=== PATIENT | female | born 1935 | race Caucasian/White ===

== ENCOUNTER 2016-11-02 15:24 | Emergency (ER) | payer MEDICARE ==
[2016-11-02] MEDS ORDERED: Albuterol/Ipratropium NEB.SOL* Albuterol 2.5 MG/Ipratropium 0.5 MG 3 ML INH ONE (17:46)
[2016-11-02] MEDS ORDERED: methylPREDNISolone SOD SUCC* 125 MG 2 ML VIAL IV ONE (17:46)
[2016-11-02 18:10] LABS: Hematocrit 38 % (35-47); Hemoglobin 12.1 g/dl (12.0-16.0); Mean Corpuscular HGB Conc 32 g/dl (31-36); Mean Corpuscular Hemoglobin 28 pg (27-31); Mean Corpuscular Volume 87 fL (80-97); Mean Platelet Volume 9 um3 (7.4-10.4); Red Cell Distribution Width 14 % (10.5-15); White Blood Count 7.5 10^3/ul (3.5-10.8)
--- NOTE | 2016-11-02 18:24 | RAD ---
Indication: Cough. Single frontal view of the chest performed at 1720 hours was reviewed. Comparison is made with previous exam dated June 13, 2016. Pacemaker leads are in place. Heart is at the upper limits of normal in size. Lung marquez are clear. No changes are noted since previous exam. IMPRESSION: NO ACTIVE CARDIOPULMONARY DISEASE IS NOTED.
[2016-11-02 18:27] LABS: Albumin 4.4 g/dL (3.2-5.2); BUN/Creatinine Ratio 23.2 (8-20); Calcium 9.6 mg/dL (8.6-10.3); EGFR African American 69.6 (>60); EGFR Non-African American 54.1 (>60); Globulin 3.7 g/dL (2-4); Total Bilirubin 0.5 mg/dL (0.2-1.0); Total Protein 8.1 g/dL (6.4-8.9)
[2016-11-02 18:30] LABS: Potassium 4.5 mmol/L (3.5-5.0)
[2016-11-02] MEDS ORDERED: guaiFENesin/CODIEN 100MG-10MG* 5 ML UDC PO ONE (18:37)
[2016-11-02 20:08] VITALS: BP 137/77
--- NOTE | 2016-11-04 08:36 | ED ---
I, Gopi,Renetta, scribed for Micha Moyer MD on 11/02/16 at 1747 . Respiratory - HPI Summary HPI Summary: This 81 y/o female presents to ED for persistent productive cough and chest congestion since 2 weeks ago. She also reports upper back pain, sore throat, and mild dysnpea. Negative rhinorrhea, fever, or hemoptysis. Remote former smoker with last smoking hx 40 years ago. She has been taking NyQuil nightly to control her symptoms while sleeping. Primary care involves Dr. Oliveira. Plan of care involving bloodwork and CXR to r/o PNA or bronchitis is discussed with pt, and she is agreeable. - History of Current Complaint Chief Complaint: EDUpperRespComplaint Stated Complaint: UPPER RESPIRATORY COMPLAINT/PAIN IN BACK/SOB Time Seen by Provider: 11/02/16 17:22 Hx Obtained From: Patient, Medical Records Onset/Duration: Gradual Onset, Still Present Pain Intensity: 5 Character: Cough (Productive) Sputum Color: Clear Aggravating Factor(s): Nothing Alleviating Factor(s): Nothing Associated Signs and Symptoms: Pleuritic Chest Pain - pain at upper back - Allergy/Home Medications Allergies/Adverse Reactions: Allergies Allergy/AdvReac Type Severity Reaction Status Date / Time Ezetimibe [From Zetia] Allergy Severe Muscle Verified 11/02/16 15:30 weakness Penicillin V Allergy Severe Hives Verified 11/02/16 15:30 [From Penicillin VK Potassium] Shellfish Allergy Allergy Severe Swelling Verified 11/02/16 15:30 Of Face,Lips,& Throat Cephalexin [From Keflex] Allergy Intermediate Hives Verified 11/02/16 15:30 Diltiazem Allergy Intermediate Rash Verified 11/02/16 15:30 Colesevelam [From Welchol] Allergy Unknown Hives Verified 11/02/16 15:30 Codeine AdvReac Severe See Comment Verified 11/02/16 15:30 Statins AdvReac Severe Muscle Ache Verified 11/02/16 15:30 Metoprolol [From Toprol XL] AdvReac Intermediate Dizziness Verified 11/02/16 15: 30 PMH/Surg Hx/FS Hx/Imm Hx Endocrine/Hematology History: Reports: Hx Thyroid Disease - HYPO Denies: Hx Diabetes Cardiovascular History: Reports: Hx Hypercholesterolemia, Hx Hypertension - ON MEDS, Hx Pacemaker/ICD, Hx Rheumatic Fever - A CHILD, Other Cardiovascular Problems/Disorders - HX PAROXYSMAL AFIB, 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 Denies: Hx Angina, Hx Coronary Artery Disease, Hx Myocardial Infarction, Hx Valvular Heart Disease Respiratory History: Reports: Hx Sleep Apnea Denies: Hx Asthma, Hx Chronic Obstructive Pulmonary Disease (COPD) GI History: Reports: Hx Gastroesophageal Reflux Disease - ON MEDS, Hx Hiatal Hernia - HX OF, Hx Irritable Bowel Denies: Hx Ulcer History: Denies: Hx Renal Disease Musculoskeletal History: Reports: Hx Arthritis - BACK AND NECK, KNEES, Hx Bursitis - RIGHT KNEE, Other Musculoskeletal History - SPINAL STENOSIS Sensory History: Denies: Hx Contacts or Glasses, Hx Hearing Aid Opthamlomology History: Denies: Hx Contacts or Glasses Psychiatric History: Reports: Hx Anxiety, Hx Depression, Hx Panic Disorder - Cancer History Hx Chemotherapy: No Hx Radiation Therapy: No - Surgical History Surgery Procedure, Year, and Place: Hysterectomy - 1978. Bladder suspension 2001 [facility]. Left knee TKR 2008 [facility]. left shoulder repair 2012. bilat cataract. right ear surgery 1976 Hx Anesthesia Reactions: Yes - hypotension per pt - Immunization History Date of Tetanus Vaccine: up to date Date of Influenza Vaccine: up to date Infectious Disease History: No Infectious Disease History: Reports: Hx Shingles - 2000 Denies: Hx Clostridium Difficile, Hx Hepatitis, Hx Human Immunodeficiency Virus (HIV), Hx of Known/Suspected MRSA, Hx Tuberculosis, Hx Known/Suspected VRE , Hx Known/Suspected VRSA, History Other Infectious Disease, Traveled Outside the [place] in Last 30 Days - Family History Known Family History: Positive: Cardiac Disease - Brother -- CAD - Social History Alcohol Use: Rare Alcohol Amount: 2 times/month Hx Substance Use: No Substance Use Type: Reports: None Hx Tobacco Use: Yes Smoking Status (MU): Former Smoker Type: Cigarettes Have You Smoked in the Last Year: No Review of Systems Negative: Fever, Chills Positive: Shortness Of Breath - mild, Cough, Other - chest congestion Negative: Vomiting, Nausea Negative: dysuria, hematuria Positive: Other - pain at left upper back secondary to coughing. Negative: Myalgia Negative: Rash Neurological: Other - negative dizziness Negative: Anxious, Depressed All Other Systems Reviewed And Are Negative: Yes Physical Exam - Summary Physical Exam Summary: Constitutional: Well-developed, Well-nourished, Alert. (-) Distressed Skin: Warm, Dry HENT: Normocephalic; Atraumatic Eyes: Conjunctiva normal Neck: Musculoskeletal ROM normal neck. (-) JVD, (-) Stridor, (-) Tracheal deviation Cardio: Rhythm regular, rate normal, Heart sounds normal; Intact distal pulses; The pedal pulses are 2+ and symmetric. Radial pulses are 2+ and symmetric. (-) Murmur Pulmonary/Chest wall: Effort normal. (+) Active cough, (-) Wheezes, (+) Left lower crackle, mild Abd: Soft, (-) Tenderness, (-) Distension, (-) Guarding, (-) Rebound Musculoskeletal: (-) Edema Lymph: (-) Cervical adenopathy Neuro: Alert, Oriented x3 Psych: Mood and affect Normal Triage Information Reviewed: Yes Vital Signs On Initial Exam: Initial Vitals Temp Pulse Resp BP Pulse Ox 98.9 F 62 20 189/74 100 11/02/16 15:30 11/02/16 15:30 11/02/16 15:30 11/02/16 15:30 11/02/16 15:30 Vital Signs Reviewed: Yes - Rosangela Coma Scale Coma Scale Total: 15 Diagnostics - Vital Signs Vital Signs Temp Pulse Resp BP Pulse Ox 11/02/16 17:00 68 156/134 95 11/02/16 16:38 61 100 11/02/16 16:36 165/76 11/02/16 15:32 98.9 F 63 20 189/74 100 11/02/16 15:30 98.9 F 62 20 189/74 100 - Laboratory Result Diagrams: 11/02/16 18:00 11/02/16 18:00 Lab Statement: Any lab studies that have been ordered have been reviewed, and results considered in the medical decision making process. - Radiology CXR Xray Interpretation: No Acute Changes Radiology Interpretation Completed By: Radiologist Re-Evaluation - Re-Evaluation First Eval Re-Evaluation Time: 19:22 Comment: MD updated pt on bloodwork and CXR results. Second Eval Re-Evaluation Time: 19:55 Change: Improved Comment: MD in room to re-evaluate pt and to discuss plan of care. Pt was able to ambulate around ED. Feeling much better, and wishes to go home. Disposition - Course Assessment/Plan: This 81 y/o female presents to ED for persistent productive cough with mild production of clear sputum and chest congestion. Upon examination pt is noted with mild left lower crackle. CXR is indicated negative. Pt feels better after methylprednisolone and inh treatment. Pt was able to ambulate around ED by herself, and wishes to go home. - Diagnoses Provider Diagnoses: Bronchitis Discharge - Discharge Plan Condition: Stable Disposition: HOME Prescriptions: Albuterol HFA INHALER* [Ventolin HFA Inhaler*] 1 - 2 puff INH Q4H PRN #1 mdi PRN Reason: Cough Benzonatate CAP* [Tessalon 100 MG CAP*] 100 mg PO TID #21 cap DOXYcycline CAP(*) [DOXYcycline 100MG CAP(*)] 100 mg PO BID #14 cap predniSONE TAB* [Deltasone TAB*] 60 mg PO DAILY #5 tab Patient Education Materials: Benzonatate (By mouth), Doxycycline (By mouth), Albuterol (By breathing), Prednisone (By mouth), Acute Bronchitis (ED) Referrals: Candelario Olievira MD [Primary Care Provider] - 2 Days The documentation as recorded by the Gopi malave Soohyun accurately reflects the service I personally performed and the decisions made by , Micha Moyer MD.
== END 2016-11-02 20:06 | disposition home or self-care (01) ==
LOC: ED 15:24
DX: J40 Bronchitis, not specified as acute or chronic (principal); R07.9 Chest pain, unspecified; M54.9 Dorsalgia, unspecified; R05 Cough; R06.02 Shortness of breath; Z87.891 Personal history of nicotine dependence
CPT/HCPCS: 36415; 71010; 80053; 83605; 85025; 87040; 87502; 96374; 99282; A9270-GY; J2930

== ENCOUNTER 2017-07-22 10:16 | Emergency (ER) | payer MEDICARE ==
[2017-07-22] MEDS ORDERED: methylPREDNISolone SOD 40 MG* 1 ML VIAL IV ONE (10:49)
[2017-07-22] MEDS ORDERED: diPHENhydraMINE IV* 50 MG/ML 1 ml VIAL (BENADRYL) IV ONE (10:49)
[2017-07-22] MEDS ORDERED: Metoprolol Tartrate IV* 1 MG/ML 5 ML VIAL IV ONE (10:49)
[2017-07-22] MEDS ORDERED: Metoprolol Tartrate TAB* 50 mg PO ONE (10:50)
[2017-07-22 11:26] LABS: ABS Basophils 0 10^3/ul (0-0.2); ABS Eosinophils 0.1 10^3/ul (0-0.6); ABS Lymphocytes 1.6 10^3/ul (1.0-4.8); ABS Monocytes 0.5 10^3/ul (0-0.8); ABS Neutrophils 4.7 10^3/ul (1.5-7.7); ABS Nucleated RBC 0 10^3/ul; Eosinophil % 1.8 % (0-6); Hematocrit 35 % (35-47); Hemoglobin 11.4 g/dl (12.0-16.0); Lymphocyte % 22.9 % (25-47); Mean Corpuscular HGB Conc 32 g/dl (31-36); Mean Corpuscular Hemoglobin 29 pg (27-31); Mean Corpuscular Volume 88 fL (80-97); Mean Platelet Volume 10 um3 (7.4-10.4); Nucleated Red Blood Cells % 0; Platelet Count 263 10^3/ul (150-450); Red Blood Count 4.01 10^6/ul (4.0-5.4); Red Cell Distribution Width 14 % (10.5-15)
[2017-07-22 11:30] LABS: INR 1.12 (0.77-1.02)
--- NOTE | 2017-07-22 11:49 | RAD ---
Indication: Rapid atrial fibrillation. History of tobacco use. Comparison: November 02, 2016 Technique: Upright AP 1134 hours Report: Rarefaction of upper lung zone interstitial markings. No focal pulmonary lesion, compelling alveolar consolidation, pleural effusion, pneumothorax. Cardiomegaly. RIGHT atrial and RIGHT ventricular level pacemaker leads without change. Unremarkable central pulmonary vasculature. Moderately large retrocardiac hiatal hernia without significant change. Negative for free air beneath the diaphragm. LEFT glenohumeral prosthesis noted. IMPRESSION: 1. Stigmata of obstructive lung disease. 2. Cardiomegaly 3. Moderately large retrocardiac hiatal hernia without significant interval change. 4. No acute pulmonary or cardiac process evident.
[2017-07-22] MEDS ORDERED: Diltiazem TAB* 30 MG PO ONE (12:12)
[2017-07-22] MEDS ORDERED: Diltiazem IV* 5 MG/ML 5 ML VIAL (for loading dose/IV Push) (25 MG) IV SLOW PU ONE (12:13)
[2017-07-22] MEDS ORDERED: Diltiazem CD CAP* 120 MG PO ONE (15:56)
--- NOTE | 2017-07-22 16:19 | ED ---
Edison Barahona Angela, scribed for Dillon Pederson MD on 07/22/17 at 1037 . Palpitations / Dysrhythmia - HPI Summary HPI Summary: This pt is a 82 y/o female, accompanied by her son, presenting to [facility] c/o atrial fibrillation since 02:30 yesterday. Pt notes she has not had afib attacks since she has her pacemaker placed. Pt notes "I tried getting rid of it " and usually takes her medications. She states she does feel coming out off afib completely. Pt currently c/o fatigue and mild SOB. She denies pleuritic chest pain. Denies chest pain, LE pain, LE swelling, dysuria. Pt denies being sick lately. Pt is on Eliquis (since pacemaker was placed) and Sotalol. She reports the last time she had afib she had cardioversion and after this she had a pacemaker placed. After placement of pacemaker, pt has not undergone cardioversion. Allergies include diltiazem (reaction was rash) and metoprolol (reaction was dizziness). - History of Current Complaint Chief Complaint: EDDysrhythmPalp Hx Obtained From: Patient, Family/Mill Mach[employer] - son Onset/Duration: Lasting Days - 1, Still Present Timing: Constant Severity Currently: Moderate Character: Irregular - Afib Aggravating: Nothing Alleviating: Nothing Associated Signs & Symptoms: Shortness of Breath - Allergy/Home Medications Allergies/Adverse Reactions: Allergies Allergy/AdvReac Type Severity Reaction Status Date / Time Ezetimibe [From Zetia] Allergy Severe Muscle Verified 07/22/17 10:24 weakness Penicillin V Allergy Severe Hives Verified 07/22/17 10:24 [From Penicillin VK Potassium] Shellfish Allergy Allergy Severe Swelling Verified 07/22/17 10:24 Of Face,Lips,& Throat Cephalexin [From Keflex] Allergy Intermediate Hives Verified 07/22/17 10:24 Diltiazem Allergy Intermediate Rash Verified 07/22/17 10:24 Colesevelam [From Welchol] Allergy Unknown Hives Verified 07/22/17 10:24 Codeine AdvReac Severe See Comment Verified 07/22/17 10:24 Statins AdvReac Severe Muscle Ache Verified 07/22/17 10:24 Metoprolol [From Toprol XL] AdvReac Intermediate Dizziness Verified 07/22/17 10: 24 Home Medications: Home Medications Calcium Carbonate-Cholecalcife [Calcium 1000 + D] 2 tab PO DAILY 07/22/17 [ History Confirmed 07/22/17] Cholecalciferol TAB* [Vitamin D TAB*] 2,000 units PO DAILY 07/22/17 [History Confirmed 07/22/17] Lactobacillus [Probiotic] 1 cap PO DAILY 07/22/17 [History Confirmed 07/22/17] Thiamine TAB* [Vitamin B-1 TAB*] 100 mg PO DAILY 07/22/17 [History Confirmed 04/29] Zolpidem TAB* [Ambien TAB*] 10 mg PO BEDTIME PRN 07/22/17 [History Confirmed 04/29] PMH/Surg Hx/FS Hx/Imm Hx Endocrine/Hematology History: Reports: Hx Thyroid Disease - HYPO Denies: Hx Diabetes Cardiovascular History: Reports: Hx Atrial Fibrillation, Hx Hypercholesterolemia , Hx Hypertension - ON MEDS, Hx Pacemaker/ICD, Hx Rheumatic Fever - A CHILD, Other Cardiovascular Problems/Disorders - HX PAROXYSMAL AFIB, 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 Denies: Hx Angina, Hx Coronary Artery Disease, Hx Myocardial Infarction, Hx Valvular Heart Disease Respiratory History: Reports: Hx Sleep Apnea Denies: Hx Asthma, Hx Chronic Obstructive Pulmonary Disease (COPD) GI History: Reports: Hx Gastroesophageal Reflux Disease - ON MEDS, Hx Hiatal Hernia - HX OF, Hx Irritable Bowel Denies: Hx Ulcer History: Denies: Hx Renal Disease Musculoskeletal History: Reports: Hx Arthritis - BACK AND NECK, KNEES, Hx Bursitis - RIGHT KNEE, Other Musculoskeletal History - SPINAL STENOSIS Sensory History: Denies: Hx Contacts or Glasses, Hx Hearing Aid Opthamlomology History: Denies: Hx Contacts or Glasses Psychiatric History: Reports: Hx Anxiety, Hx Depression, Hx Panic Disorder - Cancer History Hx Chemotherapy: No Hx Radiation Therapy: No - Surgical History Surgery Procedure, Year, and Place: Hysterectomy - 1978. Bladder suspension 2001 [facility]. Left knee TKR 2008 [facility]. left shoulder repair 2012. bilat cataract. right ear surgery 1976 Hx Anesthesia Reactions: Yes - hypotension per pt - Immunization History Date of Tetanus Vaccine: up to date Date of Influenza Vaccine: up to date Infectious Disease History: Unable to Obtain/Confirm Infectious Disease History: Reports: Hx Shingles - 2000 Denies: Hx Clostridium Difficile, Hx Hepatitis, Hx Human Immunodeficiency Virus (HIV), Hx of Known/Suspected MRSA, Hx Tuberculosis, Hx Known/Suspected VRE , Hx Known/Suspected VRSA, History Other Infectious Disease, Traveled Outside the [place] in Last 30 Days - Family History Known Family History: Positive: Cardiac Disease - Brother -- CAD - Social History Alcohol Use: Rare Alcohol Amount: 2 times/month Hx Substance Use: No Substance Use Type: Reports: None Hx Tobacco Use: Yes Smoking Status (MU): Former Smoker Type: Cigarettes Have You Smoked in the Last Year: No Review of Systems Positive: Fatigue. Negative: Fever, Chills Positive: Palpitations. Negative: Chest Pain Positive: Shortness Of Breath Negative: dysuria Negative: Edema - LE, Other - LE pain All Other Systems Reviewed And Are Negative: Yes Physical Exam - Summary Physical Exam Summary: Appearance: Well-appearing, Well-nourished. No acute distress. Skin: Warm Eyes: Normal ENT: Normal Neck: Supple, nontender Respiratory: Clear to auscultation Cardiovascular: Irregularly irregular consistent with atrial fibrillation. Equal bilateral pulses. Abdomen: Soft, nontender Bowel: Present Musculoskeletal: Normal, Strength/ROM Intact Neurological: Normal, A&Ox3. Normal mentation. Following commands. Psychiatric: Normal Triage Information Reviewed: Yes Vital Signs On Initial Exam: Initial Vitals Temp Pulse Resp BP Pulse Ox 98.6 F 104 20 137/79 97 07/22/17 10:19 07/22/17 10:19 07/22/17 10:19 07/22/17 10:19 07/22/17 10:19 Vital Signs Reviewed: Yes Diagnostics - Vital Signs Vital Signs Temp Pulse Resp BP Pulse Ox 07/22/17 10:19 98.6 F 104 20 137/79 97 - Laboratory Lab Results: Lab Results 07/22/17 07/22/17 07/22/17 Range/Units 11:07 11:07 11:07 WBC 7.0 (3.5-10.8) 10^3/ul RBC 4.01 (4.0-5.4) 10^6/ul Hgb 11.4 L (12.0-16.0) g/dl Hct 35 (35-47) % MCV 88 (80-97) fL MCH 29 (27-31) pg MCHC 32 (31-36) g/dl RDW 14 (10.5-15) % Plt Count 263 (150-450) 10^3/ul MPV 10 (7.4-10.4) um3 Neut % (Auto) 67.2 (38-83) % Lymph % (Auto) 22.9 L (25-47) % [place] % (Auto) 7.5 (1-9) % Eos % (Auto) 1.8 (0-6) % Baso % (Auto) 0.6 (0-2) % Absolute Neuts (auto) 4.7 (1.5-7.7) 10^3/ul Absolute Lymphs (auto) 1.6 (1.0-4.8) 10^3/ul Absolute Monos (auto) 0.5 (0-0.8) 10^3/ul Absolute Eos (auto) 0.1 (0-0.6) 10^3/ul Absolute Basos (auto) 0 (0-0.2) 10^3/ul Absolute Nucleated RBC 0 10^3/ul Nucleated RBC % 0 INR (Anticoag Therapy) 1.12 H (0.77-1.02) APTT 35.9 (26.0-36.3) seconds Sodium 140 (133-145) mmol/L Potassium 4.2 (3.5-5.0) mmol/L Chloride 104 (101-111) mmol/L Carbon Dioxide 27 (22-32) mmol/L Anion Gap 9 (2-11) mmol/L BUN 36 H (6-24) mg/dL Creatinine 0.99 H (0.51-0.95) mg/dL Est GFR ( Amer) 69.4 (>60) Est GFR (Non-Af Amer) 54.0 (>60) BUN/Creatinine Ratio 36.4 H (8-20) Glucose 165 H (70-100) mg/dL Calcium 9.4 (8.6-10.3) mg/dL Magnesium 2.1 (1.9-2.7) mg/dL Total Bilirubin 0.30 (0.2-1.0) mg/dL AST 11 L (13-39) U/L ALT 7 (7-52) U/L Alkaline Phosphatase 48 (34-104) U/L Troponin I 0.03 (<0.04) ng/mL Total Protein 7.0 (6.4-8.9) g/dL Albumin 3.8 (3.2-5.2) g/dL Globulin 3.2 (2-4) g/dL Albumin/Globulin Ratio 1.2 (1-3) TSH 0.15 L (0.34-5.60) mcIU/mL Blood Type Antibody Screen 07/22/17 07/22/17 Range/Units 11:07 14:15 WBC (3.5-10.8) 10^3/ul RBC (4.0-5.4) 10^6/ul Hgb (12.0-16.0) g/dl Hct (35-47) % MCV (80-97) fL MCH (27-31) pg MCHC (31-36) g/dl RDW (10.5-15) % Plt Count (150-450) 10^3/ul MPV (7.4-10.4) um3 Neut % (Auto) (38-83) % Lymph % (Auto) (25-47) % [place] % (Auto) (1-9) % Eos % (Auto) (0-6) % Baso % (Auto) (0-2) % Absolute Neuts (auto) (1.5-7.7) 10^3/ul Absolute Lymphs (auto) (1.0-4.8) 10^3/ul Absolute Monos (auto) (0-0.8) 10^3/ul Absolute Eos (auto) (0-0.6) 10^3/ul Absolute Basos (auto) (0-0.2) 10^3/ul Absolute Nucleated RBC 10^3/ul Nucleated RBC % INR (Anticoag Therapy) (0.77-1.02) APTT (26.0-36.3) seconds Sodium (133-145) mmol/L Potassium (3.5-5.0) mmol/L Chloride (101-111) mmol/L Carbon Dioxide (22-32) mmol/L Anion Gap (2-11) mmol/L BUN (6-24) mg/dL Creatinine (0.51-0.95) mg/dL Est GFR ( Amer) (>60) Est GFR (Non-Af Amer) (>60) BUN/Creatinine Ratio (8-20) Glucose (70-100) mg/dL Calcium (8.6-10.3) mg/dL Magnesium (1.9-2.7) mg/dL Total Bilirubin (0.2-1.0) mg/dL AST (13-39) U/L ALT (7-52) U/L Alkaline Phosphatase (34-104) U/L Troponin I 0.02 (<0.04) ng/mL Total Protein (6.4-8.9) g/dL Albumin (3.2-5.2) g/dL Globulin (2-4) g/dL Albumin/Globulin Ratio (1-3) TSH (0.34-5.60) mcIU/mL Blood Type A Positive Antibody Screen Negative Result Diagrams: 07/22/17 11:07 07/22/17 11:07 Lab Statement: Any lab studies that have been ordered have been reviewed, and results considered in the medical decision making process. - Radiology Chest XR Xray Interpretation: Positive (See Comments) - IMPRESSION: 1. Stigmata of obstructive lung disease. 2. Cardiomegaly. 3. Moderately large retrocardiac hiatal hernia without significant interval change. 4. No acute pulmonary or cardiac process evident. Dr. Pederson has reviewed this radiology report. Radiology Interpretation Completed By: Radiologist - EKG 10:53 Cardiac Rate: Tachycardia EKG Rhythm: Sinus Tachycardia - at 110 bpm EKG Interpretation: Afib with RVR. 13:05 Cardiac Rate: NL EKG Rhythm: Atrial Fibrillation - at 87 bpm EKG Interpretation: Nonspecific T abnormalities Re-Evaluation - Re-Evaluation First Eval Re-Evaluation Time: 12:12 Change: Unchanged Comment: Pt feels unchanged and still has rapid heart rate. Tachycardia. Will try alternative agent. Second Eval Re-Evaluation Time: 14:14 Change: Improved - palps improved, no chest pain or SOB Course/Dx - Course Course Of Treatment: I discussed pt care with Dr. Decker, register of wills. Assessment/Plan: I discussed case with Dr. Decker and Dr. Willard, agreed that she did not have any overt signs of allergic reaction to diltiazem, rate controlled here in ED, no acute distress, started on low dose long acting cardizem and instructed to fu with register of wills within the week. We attempted to call her primary register of wills Dr. Blanca, has not called back yet and pt requests discharge at this time. No chest pain or SOB. - Diagnoses Provider Diagnoses: Atrial fibrillation - Physician Notifications Discussed Care Of Patient With: Oj Decker Time Discussed With Above Provider: 13:17 Instructed by Provider To: Other - I discussed pt care with Dr. Decker, register of wills. Discharge - Discharge Plan Condition: Improved Disposition: HOME Prescriptions: Diltiazem CD CAP* [Cardizem CD CAP*] 120 mg PO DAILY #14 cap.cd Patient Education Materials: A-fib (Atrial Fibrillation) (ED) Referrals: Candelario Oliveira MD [Primary Care Provider] - Waylon Blanca MD [Medical Doctor] - Additional Instructions: PLEASE START TAKING DILTIAZEM (CARDIZEM) DAILY PLEASE MAKE AN APPOINTMENT FIRST THING IN THE MORNING TO BE SEEN BY DR. BLANCA WITHIN 1 WEEK PLEASE RETURN IMMEDIATELY TO THE ER IF YOU HAVE ANY WORSENING OR CONCERNING SYMPTOMS PLEASE MAKE AN APPOINTMENT TO BE SEEN BY YOUR PRIMARY CARE DOCTOR WITHIN 1 WEEK The documentation as recorded by the Edison malave Angela accurately reflects the service I personally performed and the decisions made by me, Dillon Pederson MD.
[2017-07-22 16:21] VITALS: BP 106/89
== END 2017-07-22 16:48 | disposition home or self-care (01) ==
LOC: ED 10:16
DX: I48.91 Unspecified atrial fibrillation (principal); Z86.79 Personal history of other diseases of the circulatory system; R00.2 Palpitations; R06.02 Shortness of breath; Z87.891 Personal history of nicotine dependence; R53.83 Other fatigue
CPT/HCPCS: 36415; 71045; 80053; 83735; 84443; 84484; 85025; 85610; 85730; 86850; 86900; 86901; 93005; 96374; 96375; 99284; A9270-GY; J1200; J2920; J3490

== ENCOUNTER 2019-04-05 17:01 | Emergency (ER) | payer MEDICARE ==
--- OUTSIDE RECORDS SUMMARY | 2019-04-05 17:07 | XMS REPORT | Continuity of Care Document ---
:1935 External Reference #:[id number] Author Name Waylon Blanca M.D. (transmitted by agent of provider Sarah Ron) Address [address] [place] [address] Care Team Providers Name Role Phone Candelario Oliveira MD - Family Medicine Care Team Information [phone] Lamp Inspector Jaz Rowell DO - Care Team Information [phone] Neuromusculoskeletal Medicine & [facility] Lamp Inspector Problems Active Problems Provider Date Disturbance in sleep behavior Dewayne Richardson M.D. Onset: 05/17/2015 Atrial fibrillation Dewayne Richardson M.D. Onset: 05/17/2015 Obstructive sleep apnea syndrome Dewayne Richardson M.D. 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 Social History Type Date Description Comments Sex Unknown Tobacco Use Start: Unknown End: Former Cigarette Smoker smoked for 20 Unknown 1 1/2 Packs Daily years-quit 30 years ago ETOH Use Occasionally consumes alcohol Tobacco Use Start: Unknown End: Patient is a former Unknown smoker Recreational Drug Use Denies Drug Use Smoking Status Reviewed: 03/08/19 Patient is a former smoker Exercise Type/Frequency Exercises rarely Allergies, Adverse Reactions, Alerts Active Allergies Reaction Severity Comments Date Statins Muscle Weakness, Severe per [facility] 06/13/16 02/09/2008 Muscle Ache Tiazac Rash Moderate Diltiazem- per [facility] 02/09/2008 06/13/16 Codeine respiratory Severe per [facility] 06/13/16 02/09/2008 depression PCN Urticaria Severe per [facility] 06/13/16 02/09/2008 Toprol Dizziness Moderate per [facility] 06/13/16 02/09/2008 Zetia Muscle Weakness Severe Ezetmibe- per [facility] 02/09/2008 06/13/16 Welchol Urticaria Colesevelam - per [facility] 02/09/2008 06/13/16 Shellfish-derived swelling of Severe per [facility] 06/13/16 05/17/2015 Products face,lips,throat Cephalexin Urticaria Moderate per [facility] 06/13/16 05/17/2015 Clindamyacin Urticaria Moderate 06/18/2016 Diltiazem rash 07/25/2016 Medications Active Medications SIG Qnty Indications Ordering Date Provider Levothyroxine Sodium 1 by mouth every Waylon D. 08/05/2017 day Vlad Blanca 112mcg Tablets Furosemide 1 by mouth every 30tabs Waylon DGraham 08/26/2016 40mg Tablets day Vlad Blanca Vitamin B12 1 by mouth every Unknown 05/16/2015 100mcg day Tablets Ambien 1 by mouth every Unknown 05/16/2015 10mg Tablets night at bedtime as needed sleep insomnia Oxybutynin Chloride take one tablet Unknown 05/16/2015 5mg by mouth once a Tablets day Hydralazine HCL 1 by mouth two Unknown 05/16/2015 25mg times a day Tablets Calcium 2000 mg one po Oj Mckeon 02/09/2008 qd Vlad Decker Alprazolam prn 30tabs Unknown 0.5mg Tablets Eliquis 1 by mouth twice 180tabs Waylon DGraham 5mg Tablets a day Vlad Blanca Omeprazole 1 by mouth every Unknown 40mg Capsules day Duloxetine HCL 1 by mouth every Unknown 60mg Caps day Part Probiotic daily Unknown Vitamin D by mouth Unknown 1000Unit everyday Tablets Sotalol HCL (AF) 1/2 tab by mouth Unknown 80mg twice a day Tablets Medications Administered in Office Medication SIG Qnty Indications Ordering Provider Date Triamcinolone (Kenalog) Roe Singh MD 01/18/2019 Injection Immunizations CPT Code Status Date Vaccine Lot # [id number] Given 05/17/2015 Influenza Virus 3Yrs & Over Vital Signs Date Vital Result Comment 03/08/2019 1:56pm Height 64 inches 5'4" Weight 184.25 lb with shoes Heart Rate 62 /min radial BP Systolic 122 mmHg Rue reg cuff BP Diastolic 80 mmHg Rue reg cuff BP Systolic Sitting 122 mmHg Lue reg cuff BP Diastolic Sitting 84 mmHg Lue reg cuff BP Systolic Standing 120 mmHg Lue reg cuff BP Diastolic Standing 84 mmHg Lue reg cuff BMI (Body Mass Index) 31.6 kg/m2 Ejection Fraction 55-60% ECHO 07/23/15 01/18/2019 10:18am Height 64 inches 5'4" Weight 181.00 lb Heart Rate 74 /min BP Systolic 130 mmHg BP Diastolic 82 mmHg Respiratory Rate 16 /min Body Temperature 97.1 F Pain Level 5 BMI (Body Mass Index) 31.1 kg/m2 Results Description No Information Available Procedures Date Code Description Status 03/07/2019 20012 Pace Maker Eval W/Iterative Adjment Dual Lead Completed 01/18/2019 Inj/Aspir, Intermediate Joint/Bursa W/ US Completed Medical Devices Description No Information Available Encounters Type Date Location Provider Dx Diagnosis Office Visit 01/18/2019 Orthopedic Roe Singh, M19.172 Post-traumatic 10:00a [facility] osteoarthritis, left ankle and foot Office Visit 10/05/2018 Surgical Mary Carmen Marinelli MD K64.9 Unspecified 9:30a [facility] hemorrhoids Assessments Date Code Description Provider 03/08/2019 I49.5 Sick sinus syndrome Waylon Blanca M.D. 03/08/2019 Z95.0 Presence of cardiac pacemaker Waylon Blanca M.D. 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
[2019-04-05 17:37] VITALS: BP 188/77
--- NOTE | 2019-04-05 18:27 | UC ---
Throat Pain/Nasal Jj HPI - HPI Summary HPI Summary: 83 year old female with PMH + for HRT Dx, presents with sore throat, nasal congestion, ear fullness, chills, fatigue x 1 week. Thought symptoms were viral , but continues to worsen. No recent abx use, multiple allergies to abx. No GI symptoms. No ear pain. No fever, + chills at night. - History of Current Complaint Chief Complaint: UCGeneralIllness Stated Complaint: SORE THROAT Time Seen by Provider: 04/05/19 18:09 Hx Obtained From: Patient ?: No Onset/Duration: Sudden Onset, Lasting Days Severity: Moderate Pain Intensity: 5 Pain Scale Used: 0-10 Numeric Cough: Other: - minimal Associated Signs & Symptoms: Positive: Dysphagia, Hoarseness, Sinus Discomfort, Nasal Discharge. Negative: Fever, Vomiting, Rash - Allergies/Home Medications Allergies/Adverse Reactions: Allergies Allergy/AdvReac Type Severity Reaction Status Date / Time codeine Allergy Severe See Comment Verified 04/05/19 17:49 ezetimibe [From Zetia] Allergy Severe Muscle Ache Verified 04/05/19 17:49 metoprolol Allergy Severe Dizziness Verified 04/05/19 17:49 penicillin V Allergy Severe Hives Verified 04/05/19 17:49 shellfish derived Allergy Severe Swelling Verified 04/05/19 17:49 Of Face,Lips,& Throat Qldiddy-Xsh-Hyy Reductase Allergy Severe Muscle Ache Verified 04/05/19 17:49 Inhibitor cephalexin [From Keflex] Allergy Intermediate Hives Verified 04/05/19 17:49 diltiazem Allergy Intermediate Rash Verified 04/05/19 17:49 colesevelam [From WelChol] Allergy Unknown Hives Verified 04/05/19 17:49 PMH/Surg Hx/FS Hx/Imm Hx Previously Healthy: Yes - Surgical History Surgical History: Yes Surgery Procedure, Year, and Place: Hysterectomy - 1978. Bladder suspension 2001 [facility]. Left knee TKR 2008 [facility]. left shoulder repair 2012. bilat cataract. right ear surgery 1976 - Family History Known Family History: Positive: Cardiac Disease - Brother -- CAD, Non- Contributory - Social History Alcohol Use: Rare Alcohol Amount: 2 times/month Substance Use Type: None Smoking Status (MU): Former Smoker Type: Cigarettes Have You Smoked in the Last Year: No When Did the Patient Quit Smoking/Using Tobacco: 1976 - Immunization History Most Recent Influenza Vaccination: 2016 Most Recent Tetanus Shot: unk Most Recent Pneumonia Vaccination: 2016 Review of Systems All Other Systems Reviewed And Are Negative: Yes Constitutional: Positive: Chills, Fatigue ENT: Positive: Sore Throat, Ear Ache, Nasal Discharge, Sinus Congestion, Sinus Pain/Tenderness Respiratory: Negative: Shortness Of Breath Is Patient Immunocompromised?: No Physical Exam Triage Information Reviewed: Yes Appearance: No Pain Distress, Well-Nourished, Ill-Appearing - minimal Vital Signs: Initial Vital Signs Temp 99.0 F 04/05/19 17:32 Pulse 77 04/05/19 17:32 Resp 16 04/05/19 17:32 BP 188/77 04/05/19 17:32 Pulse Ox 96 04/05/19 17:32 Vital Signs Reviewed: Yes Eye Exam: Normal ENT: Positive: Pharynx normal, TMs normal - Cerumen impaction b/l, unable to completely remove ear wax with irrigation, ear drops written for b/l., Sinus tenderness - b/l, L>R, Uvula midline, Other - + Postnasal drip posterior pharynx. Negative: Pharyngeal erythema, Tonsillar swelling, Tonsillar exudate, Trismus, Muffled voice Neck: Positive: Supple, No Lymphadenopathy, Tenderness @ - submand, L>R Respiratory: Positive: Chest non-tender, Lungs clear, Normal breath sounds, No respiratory distress, No accessory muscle use. Negative: Crackles, Rhonchi, Stridor, Wheezing Cardiovascular: Positive: RRR Skin Exam: Normal Throat Pain/Nasal Course/Dx - Course Course Of Treatment: Sinusitis: - Antibiotics as directed. Take doxycycline 2 hours before taking calcium tablets. - Increase fluid intake - Increase rest. - Return if no improvement of symptoms within 2-3 days or go to ER if symptoms worsen, shortness of breath, increased pain, or difficulty swallowing. - Over the counter medications as needed for pain, fever, aches. - Differential Dx/Diagnosis Differential Diagnosis/HQI/PQRI: Pharyngitis, Sinusitis, URI Provider Diagnosis: Sinusitis Discharge ED - Sign-Out/Discharge Documenting (check all that apply): Patient Departure All imaging exams completed and their final reports reviewed: No Studies - Discharge Plan Condition: Good Disposition: HOME Prescriptions: Carbamide Peroxide 6.5% OTIC* [DEBROX 6.5% Otic*] 5 drop BOTH EARS BID #1 bottle Doxycycline Monohydrate 100 mg PO BID #14 capsule Patient Education Materials: Sinusitis (ED) Referrals: Candelario Oliveira MD [Primary Care Provider] - Additional Instructions: Sinusitis: - Antibiotics as directed. Take doxycycline 2 hours before taking calcium tablets. - Increase fluid intake - Increase rest. - Return if no improvement of symptoms within 2-3 days or go to ER if symptoms worsen, shortness of breath, increased pain, or difficulty swallowing. - Over the counter medications as needed for pain, fever, aches. - Billing Disposition and Condition Condition: GOOD Disposition: Home - Attestation Statements Provider Attestation: Per institutional requirements, I have reviewed the chart, however, I was not consulted specifically or made aware of this patient by the midlevel provider. I did not personally evaluate, interact with , or disposition this patient.
== END 2019-04-05 19:00 | disposition home or self-care (01) ==
LOC: UCEAST 17:01
DX: J32.9 Chronic sinusitis, unspecified (principal); Z87.891 Personal history of nicotine dependence; Z88.5 Allergy status to narcotic agent; Z88.0 Allergy status to penicillin
CPT/HCPCS: 99213; G0463